=== PATIENT | female | born 2000 ===

== ENCOUNTER 2022-11-09 13:35 | Inpatient (IN) | payer OTHER ==
[~2022-11-09] VITALS: Ht 167.6 cm; Wt 70.0 kg
[2022-11-12] VITALS (8 sets, daily range): BP systolic 107–122; BP diastolic 61–74; PULSE 80–92; TEMP 98.1
--- NOTE | 2022-11-12 19:00 | NUR ---
1900 G1L0 40.5 WEEK GEST ADM TO LR6 FOR CYTOTEC INDUCTION OF LABOR. EFM ON WITH FHT BASELINE 145 WITH GOOD VARIABILITY NOTED. SVE /-3. PT STATES FELT LIKE SHE HAD A LITTLE LEAKING EARLIER TODAY AND AMNIOTRACE DONE AND NEG WITH NO FLUID NOTED. ADM ASSESSMENT COMPLETED AND PERMITS SIGNED. 193 INT STARTED AND LAB DRAWN AND SENT. CONTRACTIONS NOTED EVERY 2-3 MINUTES. DOES NOT FEEL EVERY CONTRACTION BUT DOES FEEL A COUPLE AND C/O BACKPAIN.
[2022-11-12] MEDS ORDERED: PRENATAL TABLET PO (19:14)
--- NOTE | 2022-11-12 19:50 | NUR ---
1950 CONTS TO CONTRACT EVERY 2-3 MINUTES LASTING 60-90 SECONDS. SOME FELT MILD PER PT AND C/O BACKACHE. DR BETTS NOTIFIED AND ORDER RECEIVED TO NOT START CYTOTEC. LET PT UP AND AMB WITH INTERMITTENT MONITERING.
[2022-11-12 19:57] LABS: HEMOGLOBIN 11.9 g/dl (12.5-16.0); MEAN CELL VOLUME 90 fl (80.0-100.0); MEAN CORPUSCULAR HEMOGLOBIN 30 pg (27-31); MEAN CORPUSCULAR HGB CONC 33 g/dl (33.0-37.0); MEAN PLATELET VOLUME 10.9 fl (7.4-10.4); PLATELET COUNT 240 K/mm3 (130-400); RED BLOOD COUNT 4.01 M/mm3 (4.10-5.30); REDCELL DISTRIBUTION WIDTH-CV 12.8 % (11.5-14.5)
--- NOTE | 2022-11-12 20:40 | NUR ---
2039 RETURNED TO BED SINCE UP AMB AT 2099. STATES CONTRACTIONS FEEL MORE UNCOMFORTABLE AND FEELS MOST OF THEM NOW. 2099 EFM OFF AND UP TO AMB IN [place]
[2022-11-12 20:45] LABS: EOSINOPHIL 1 % (0-4); LYMPHOCYTE 16 % (20.0-51.0); METAMYELOCYTE 2 % (0-0); NEUTROPHILS 76 % (42.0-75.2); PLATELET ESTIMATE NORMAL (NORMAL)
--- NOTE | 2022-11-12 21:45 | NUR ---
2144 RETURNED TO BED FROM AMB AND EFM ON. STATES CONTRACTIONS FEEL MORE UNCOMFORTABLE. SVE /2204 DR BETTS NOTIFIED WITH ORDERS TO REST THRU NIGHT AND START PIT AT 0400 ID NEEDED.
--- NOTE | 2022-11-12 22:10 | NUR ---
2210 VISTARIL 50 MG PO GIVEN FOR REST.
[2022-11-13] VITALS (65 sets, daily range): BP systolic 95–137; BP diastolic 50–97; PULSE 76–148; TEMP 97.8–103
--- NOTE | 2022-11-13 18:00 | NUR ---
[id number] THIS RN AT PT BEDSIDE
--- NOTE | 2022-11-13 18:00 | NUR ---
1640 DR BETTS AND S SABRINA RN IN ROOM FOR DELIVERY 1716 SPONTANEOUS VAGINAL DELIVERY OF VIABLE MALE INFANT. NUCHAL CORD X1. INFANT TO MOTHERS ABDOMEN. CORD CLAMPED BY DR BETTS AND CUT BY FOB. S TECH RN TAKES OVER CARE OF . TO MOTHER'S CHEST. CORD GASES COLLECTED. 1723 SPONTANEOUS DELIVERY OF PLACENTA. PITOCIN BOLUS STARTED PER PROTOCOL. FUNDAL MASSAGE DONE BY DR BETTS. DR BETTS ORDERS 600MG CYTOTEC DUE TO MODERATE AMT OF BLEEDING. 2ND DEGREE LACERATION NOTED AND REPAIRED BY DR BETTS. FUNDAL MASSAGE DONE. SMALL AMT OF BLEEDING NOTED. FIRM/MIDLINE. PERICARE DONE. PT REPOSITIONED. PLAN OF CARE AND SAFETY PRECAUTIONS DISCUSSED. PT VERBALIZES UNDERSTANDING.
--- NOTE | 2022-11-13 20:00 | NUR ---
1999 IV TO INT. EPID CATH REMOVED. SCHEDULED MOTRIN AND TYLENOL GIVEN. REG DIET TAKEN AND RETAINED. UP TO BR WITH ASSIST AND VOIDED 200CC. PERICARE DONE AND AMB TO 208 AND ALYCIA WELL.
[2022-11-14 02:30] VITALS: BP 97/64; PULSE 84; TEMP 98.2
[2022-11-14] MEDS ORDERED: IBU600 MG PO (08:34)
[2022-11-14 09:08] VITALS: BP 96/61; PULSE 76; TEMP 97.6
--- NOTE | 2022-11-14 10:52 | NUR ---
Initial visit attempt: Consult in progress, Driver/Merchandiser left card offering God's blessings and information regarding the availability of Spiritual Care at [facility].
[2022-11-14 13:45] VITALS: BP 103/66; PULSE 96; TEMP 97.6
[2022-11-14 17:30] VITALS: BP 111/70; PULSE 95; TEMP 97.4
[2022-11-15 08:00] VITALS: BP 107/67; PULSE 85
== END 2022-11-15 10:00 | disposition home or self-care (01) | DRG 805 ==
LOC: LDR 11-12 18:50 → OB 11-13 08:25
PROVIDERS: ADMIT Obstetrics & Gynecology
PROC: 3E033VJ Introduction of Other Hormone into Peripheral Vein, Percutaneous Approach (ICD-10-PCS; 2022-11-12)
PROC: 10E0XZZ Delivery of Products of Conception, External Approach (ICD-10-PCS; principal; 2022-11-13)
PROC: 0KQM0ZZ Repair Perineum Muscle, Open Approach (ICD-10-PCS; 2022-11-13)
PROC: 10907ZC Drainage of Amniotic Fluid, Therapeutic from Products of Conception, Via Natural or Artificial Opening (ICD-10-PCS; 2022-11-13)
DX: O48.0 Post-term pregnancy (principal); O41.1230 Chorioamnionitis, third trimester, not applicable or unspecified; Z37.0 Single live birth; O72.1 Other immediate postpartum hemorrhage; O70.1 Second degree perineal laceration during delivery; O69.81X0 Labor and delivery complicated by cord around neck, without compression, not applicable or unspecified; Z3A.40 40 weeks gestation of pregnancy
CPT/HCPCS: J0290; J1580; J2590; J7120

== ENCOUNTER 2024-07-13 06:28 | Inpatient (IN) | payer BC ==
[~2024-07-13] VITALS: Ht 167.6 cm; Wt 65.0 kg
[2024-07-13] VITALS (36 sets, daily range): BP systolic 87–130; BP diastolic 50–81; PULSE 68–107; TEMP 97.7–98
[~2024-07-13 06:28] MED LIST: IBU600 MG PO; PRENATAL TABLET PO
--- NOTE | 2024-07-13 06:40 | NUR ---
PT HERE WITH FOR INDUCTION OF LABOR, ORIENTED TO RM, NURSE AND PLAN OF CARE, CONSENTS SIGNED, EFM ON AT 0642, FHR 130'S WITH ACCELS TO 150'S, REACTIVE STRIP, +FM, DENIES BLEEDING, OR LEAKING OF FLUIDS. ASSESSMENT COMPLETED, QUESTIONS ADDRESSED. IV START IN LEFT FOREARM WITH 20G, BAG 1 INITIATED PER ORDER.
--- NOTE | 2024-07-13 07:20 | NUR ---
PITOCIN STARTED AT 2MU/M/MIN PER PUMP PER ORDER AT 0720.
[2024-07-13] MEDS ORDERED: LR & Oxytocin 500 ML IV SCH (07:30)
[2024-07-13] MEDS ORDERED: LR 1,000 ML IV SCH ×2 (07:30→12:15)
[2024-07-13] MEDS ORDERED: LR 1,000 ML IV PRN (07:30)
[2024-07-13 07:40] LABS: HEMATOCRIT 39.8 % (37.0-47.0); HEMOGLOBIN 13.6 g/dl (12.5-16.0); MEAN CELL VOLUME 94 fl (80.0-100.0); MEAN CORPUSCULAR HEMOGLOBIN 32 pg (27-31); MEAN CORPUSCULAR HGB CONC 34 g/dl (33.0-37.0); MEAN PLATELET VOLUME 11.1 fl (7.4-10.4); PLATELET COUNT 176 K/mm3 (130-400); RED BLOOD COUNT 4.24 M/mm3 (4.10-5.30); REDCELL DISTRIBUTION WIDTH-CV 13.2 % (11.5-14.5)
[2024-07-13 08:12] LABS: BAND 4 % (0-10); EOSINOPHIL 1 % (0-4); LYMPHOCYTE 12 % (20.0-51.0); NEUTROPHILS 78 % (42.0-75.2)
[2024-07-13 08:13] LABS: PLATELET ESTIMATE NORMAL (NORMAL)
--- NOTE | 2024-07-13 08:25 | NUR ---
EFM OFF AT 0832, VOIDS 100CC OF DARK/CLEAR COLORED URINE, RET TO BED, EFM ON AT 0838, IN ROOM, VIEWS STRIP, DISCUSSES PLAN OF CARE WITH PT AND , QUESTIONS ADDRESSED, SVE AT 0840, AROM WITH IMMEDIATE CLEAR FLUID RET, PT TOLERATED WELL, FHR 145 AT AROM. OK FOR EPIDURAL WHEN PT IS READY.
--- NOTE | 2024-07-13 08:55 | NUR ---
VERBALIZES FEELING MORE CTX PAIN LOWER HIPS, POSITION CHANGE AT 0900, SITTING UP ON SIDE OF BED, FOB AT SIDE OFFERING SUPPORT, DISCUSSED COMFORT MEASURES POSITION CHANGES IN LABOR.
--- NOTE | 2024-07-13 09:25 | NUR ---
EFM OFF AT 0925, PT UP TO BATHROOM, DID NOT TAKE BP, VOIDS 200CC OF CLEAR YELLOW URINE, RET TO BED, SITTING UP ON SIDE OF BED, EFM ON AT 0932.
--- NOTE | 2024-07-13 10:00 | NUR ---
BAG 1 LR INFUSED, BAG 2 HUNG AT 1000.
--- NOTE | 2024-07-13 10:40 | NUR ---
CTX BECOMING MORE INTENSE, POSITION CHANGE STANDING SWAYING AT BEDSIDE, EFM OFF AT 1048, VOIDS 200CC OF CLEAR YELLOW URINE, RET,EFM ON AT 1051, STANDING/SWAYING AT BEDSIDE, BREATHING EASY THROUGH CTX, AT SIDE.
--- NOTE | 2024-07-13 11:10 | NUR ---
AT 1100, SVE DONE, 3-4CM/8/-1 STATION, BREATHING THROUGH CTX, PHONED UNIT, UPDATED PT IS 3-4CM, NO NEW ORDERS. PT REQUESTS EPIDURAL AT THIS TIME, LIEN PHONED, ON WAY, IVF BOLUS INFUSING FOR EPIDURAL PLACEMENT.
[2024-07-13] MEDS ORDERED: ROPivacaine PF 0.2% 200 ML IV ONE (11:29)
--- NOTE | 2024-07-13 11:40 | NUR ---
AT 1130 PT POSITIONED SITTING UP ON SIDE OF BED FOR EPIDRUAL PLACEMENT, IVF BOLUS INFUSING, DANIELLE-BOLTING MACHINE OPERATOR AT BEDSIDE, CONSENT FOR EPIDURAL, DISCUSSES PROCEDURE, SINGLE SHOT AT 1140-SEE ANESTHESIA RECORD, PT TOLERATES PROCEDURE WELL, REPOSITIONED AT 1145 WEDGED LEFT FOLLOWING EPIDURAL PLACEMENT, VSS, FHR 130'S WITH ACCELS TO 150'S.
--- NOTE | 2024-07-13 11:55 | NUR ---
VERBALIZES LESS PAIN WITH CTX AT 1155, LEFT TOES GETTING TINLGLY AND RIGHT SIDE FEELING NUMB.
--- NOTE | 2024-07-13 12:10 | NUR ---
POSITION CHANGE UP TO RIGHT SIDE
[2024-07-13] MEDS ORDERED: diphenhydrAMINE 50 MG/ML 1 ML VIAL IV PRN (12:15)
[2024-07-13] MEDS ORDERED: Naloxone 0.4 MG/ML VIAL IV PRN ×2 (12:15→14:45)
[2024-07-13] MEDS ORDERED: Ondansetron 4 MG/2 ML VIAL IV PRN (12:15)
[2024-07-13] MEDS ORDERED: diphenhydrAMINE 25 MG CAP PO PRN (12:15)
[2024-07-13] MEDS ORDERED: LR 500 ML IV PRN (12:15)
[2024-07-13] MEDS ORDERED: ePHEDrine 50 MG/10 ML VIAL IV PRN (12:15)
--- NOTE | 2024-07-13 12:25 | NUR ---
FEELING MOST CTX PAIN IN BACK, HIT EPIDURAL BOLUS PUMP BUTTON TO SEE IF THAT WILL HELP, WILL CONTINUE TO CHANGE POSITIONS.
--- NOTE | 2024-07-13 12:55 | NUR ---
FAIRCHILD PLACED WITH IMMEDIATE CLEAR YELLOW URINE RET AND TO DEPENDANT DRAINAGE AT 1300, PT POSITIONED WEDGED LEFT AND SITTING UP TO GET EPIDURAL EVEN.
--- NOTE | 2024-07-13 13:40 | NUR ---
SLEEPING ON LEFT SIDE, COMFORTABLE WITH EPIDURAL.
--- NOTE | 2024-07-13 14:00 | NUR ---
AT 1403, SVE DONE PT COMPLETE +2 STATION, BLOODY SHOW, PHONED, HE WILL HEAD IN, CLAUDIA-BABY NURSE ALSO NOTIFIED, SET UP FOR DELIVERY, PT COMFORTABLE WITH EPIDURAL.
--- NOTE | 2024-07-13 14:10 | NUR ---
GURINDER DC'D AT 1408, EPIDURAL OFF R/T PT LEGS VERY NUMB, UNABLE TO MOVE, PITOCIN OFF. DR. BETTS IN ROOM AT 1418, PERINEAL PREP BY . NANCI-WEB PRODUCER NURSE AND CLAUDIA-MATT NURSERY NURSE ALSO IN ROOM FOR DELIVERY. OF F/C WITH 8-9-9 APGARS BY AFTER 2 PUSHES OVER SUPERFICIAL PERINEAL LACERATIONS, BABE TO MOMS ABDOMEN, +BONDING. DAD AT SIDE.
--- NOTE | 2024-07-13 14:30 | NUR ---
SPONTANEOUS PLACENTA AT 1427, PITOCIN INFUSING AT 333MU/MIN PER PUMP PER ORDER, FINISHES REPIAR, ICE TO BOTTOM, FUNDUS FIRM AND UNDER 2, BABE CONTINUES SKIN TO SKIN WITH MOM, WARM BLANKER GIVEN, VSS.
[2024-07-13] MEDS ORDERED: oxyCODONE 5 MG TAB PO PRN (14:45)
[2024-07-13] MEDS ORDERED: Tdap Vaccine 0.5 ML SYRINGE IM SCH (14:45)
[2024-07-13] MEDS ORDERED: Phenylephrine/Mineral Oil/Petrolatum 57 GM TUBE RC PRN (14:45)
[2024-07-13] MEDS ORDERED: Loratadine 10 MG TAB PO PRN (14:45)
[2024-07-13] MEDS ORDERED: Measles/Mumps/Rubella Virus Vaccine Live w Diluent 0.5 ML VIAL SQ SCH (14:45)
[2024-07-13] MEDS ORDERED: Ibuprofen 600 MG TAB PO SCH (14:45)
[2024-07-13] MEDS ORDERED: Acetaminophen 500 MG TAB PO SCH (14:45)
[2024-07-13] MEDS ORDERED: Mag/Al Hydrox/Simeth Susp 30 ML CUP PO PRN (14:45)
[2024-07-13] MEDS ORDERED: Witch Hazel 50% Pads Bulk TUB TP PRN (14:45)
[2024-07-13] MEDS ORDERED: Magnes Hydrox (MOM) 80 MG/ML 30 ML CUP PO PRN (14:45)
--- NOTE | 2024-07-13 14:45 | NUR ---
BABE TO LEFT SIDE WITH GOOD LATCH AT 1447.
--- NOTE | 2024-07-13 15:15 | NUR ---
BABE TO RIGHT SIDE WITH GOOD LATCH, STARTING TO HAVE MOVEMENT IN FEET, WATER PITCHER FILLED.
--- NOTE | 2024-07-13 16:00 | NUR ---
IVF PITOCIN AND LR INFUSED, CAPPED, PT TOLERATING PO WELL, HOLDING BABE, DENIES PAIN, VSS.
[2024-07-13] MEDS ORDERED: Sennosides/Docusate 8.6-50 MG TAB PO SCH (17:00)
--- NOTE | 2024-07-13 17:00 | NUR ---
VSS, LEGS STILL VERY NUMB, BLADDER EMPTIED 250CC OF CLEAR YELLOW URINE, FUNDUS MASSAGED FIRM.
--- NOTE | 2024-07-13 17:55 | NUR ---
VSS, STOOL SOFTENER AND IBUPROFEN GIVEN FOR ANTICIPATORY PAIN, SENG CARE DONE, EPIDURAL CATHETER DC'D, TIP INTACT, BANDAID APPLIED, CLEAN GOWN ON, TO RM 207 WITH KAILASH-RN ASSIST WITH STANDER, ORIENTED TO RM 207, CALL LIGHT, PLAN OF CARE, BABE IN ROOM, PLANS TO NURSE AT THIS TIME, ORDERED SUPPER, IN ROOM.
[2024-07-13] MEDS ORDERED: traZODone 50 MG TAB PO PRN (21:00)
[2024-07-14 00:45] VITALS: BP 102/63; PULSE 86; TEMP 97.4
[2024-07-14 05:30] VITALS: BP 103/69; PULSE 80; TEMP 98.1
[2024-07-14 09:30] VITALS: BP 103/63; PULSE 90; TEMP 97.3
--- NOTE | 2024-07-14 10:03 | NUR ---
Initial visit attempt: Patient resting, Dynamics Ax Solution Architect left card offering Congratulations and God's Blessings along with information regarding the availability of Spiritual Care at our Hospital.
--- NOTE | 2024-07-14 15:30 | NUR ---
DISCHARGE TEACHING COMPLETED. EDUCATED ON FOLLOW UP APPOINTMENT AND PRESCRIPTION. QUESTIONS INVITED AND ANSWERED.
== END 2024-07-14 16:05 | disposition home or self-care (01) | DRG 807 ==
LOC: LDR 06:28 → OB 09:50
PROVIDERS: ADMIT Obstetrics & Gynecology
PROC: 10E0XZZ Delivery of Products of Conception, External Approach (ICD-10-PCS; principal; 2024-07-13)
PROC: 3E033VJ Introduction of Other Hormone into Peripheral Vein, Percutaneous Approach (ICD-10-PCS; 2024-07-13)
PROC: 0HQ9XZZ Repair Perineum Skin, External Approach (ICD-10-PCS; 2024-07-13)
DX: O99.02 Anemia complicating childbirth (principal); Z37.0 Single live birth; Z3A.40 40 weeks gestation of pregnancy; G43.909 Migraine, unspecified, not intractable, without status migrainosus; O70.0 First degree perineal laceration during delivery
CPT/HCPCS: J2590; J2795; J7120